=== PATIENT | male | born 1960 | race Caucasian/White ===

== ENCOUNTER 2024-11-22 17:42 | Emergency (ER) | payer OTHER, SELFPAY ==
--- NOTE | ~2024-11-22 | XR_ITS ---
EXAMINATION: XR chest 2V DATE: 11/22/2024 18:13 INDICATION: Shortness of breath, cough and chest wall pain TECHNIQUE: frontal and lateral views of the chest were obtained. COMPARISON: None FINDINGS: The lungs are clear with no focal airspace opacities, pulmonary edema, pleural effusion or pneumothorax. The cardiomediastinal silhouette is normal. Mild thoracic dextrocurvature with mild spondylosis. IMPRESSION: 1. No acute cardiopulmonary disease. Reviewed, dictated and finalized at location A.
[2024-11-22 17:59] VITALS: BP 164/93; PULSE 81; RESP 16; TEMP 36.8; O2SAT 99
--- NOTE | 2024-11-22 18:08 | ED.URI ---
HPI - URI/Sore Throat General Chief Complaint: Upper Respiratory Infection Stated Complaint: URI Symptoms Time Seen by Provider: 11/22/24 17:59 Source: patient and RN notes reviewed Mode of arrival: ambulatory Limitations: no limitations History of Present Illness HPI Narrative: 59-year-old patient with history of diabetes, HTN, high cholesterol, presents today complaining of a 4 day history of cough, fatigue, headache, body aches, nasal congestion with shortness of breath and sternal chest wall pain that started today. He has been taking Tylenol and ibuprofen without much improvement. Denies fever. No history of asthma or COPD. Related Data Home Medications ?Medication ?Instructions ?Recorded ?Confirmed ?Last Taken ?Type fluoxetine 40 mg capsule 40 mg PO DAILY 11/22/24 11/22/24 Unknown History lisinopril 10 mg tablet 10 mg PO DAILY 11/22/24 11/22/24 Unknown History metformin 500 mg tablet,extended 500 mg PO BID 11/22/24 11/22/24 Unknown History release 24 hr rosuvastatin 10 mg tablet 10 mg PO HS 11/22/24 11/22/24 Unknown History tamsulosin 0.4 mg capsule 0.4 mg PO Q24H 11/22/24 11/22/24 Unknown History Allergies Allergy/AdvReac Type Severity Reaction Status Date / Time No Known Allergies Allergy Verified 11/22/24 17:58 [facility] Past Medical History Medical History (Updated 11/22/24 @ 20:26 by Lesia Londono, [facility], ) High cholesterol Hypertension Comments At time of signature, I have reviewed and agree with nursing past medical, surgical, social and family history unless otherwise noted. Please see nursing chart for further information. There is no relevant family history pertinent to the presenting complaint Exam Narrative: GENERAL: Mildly ill-appearing, well-nourished, and in no acute distress. HEAD: Normocephalic, atraumatic. EYES: EOMI. No redness or drainage. Conjunctivae normal. ENT: Mucous membranes pink and moist. Nares clear. No rhinorrhea. TMs normal bilaterally. Throat normal. Uvula midline. NECK: Normal AROM. Supple. No lymphadenopathy. CHEST: No respiratory distress. Crackles in the bilateral bases, otherwise clear. HEART: Regular rate and rhythm. No murmur appreciated. EXTREMITIES: Normal range of motion. No edema. SKIN: Warm, dry, no rash. Capillary refill normal. Normal skin turgor. NEURO: No focal deficits. Alert and oriented x3. Gait steady. PSYCH: Normal affect. No signs of depression or anxiety. Course Course Emergency Course: 1910- Continuing to await CXR results. Patient has been updated. Level of Care: Express Care Visit Vital Signs Vital signs: Vital Signs Temperature 98.3 F 11/22/24 17:59 Pulse Rate 81 11/22/24 17:59 Respiratory Rate 16 11/22/24 17:59 Blood Pressure 164/93 H 11/22/24 17:59 Pulse Oximetry 99 11/22/24 17:59 Temperature 98.3 F 11/22/24 17:59 Pulse Rate 81 11/22/24 17:59 Respiratory Rate 16 11/22/24 17:59 Blood Pressure 164/93 H 11/22/24 17:59 Pulse Oximetry 99 11/22/24 17:59 Reviewed MDM - URI/Sore Throat MDM Narrative Medical decision making narrative: 59-year-old patient with history of diabetes, HTN, high cholesterol, presents today complaining of a 4 day history of cough, fatigue, headache, body aches, nasal congestion with shortness of breath and sternal chest wall pain that started today. He has been taking Tylenol and ibuprofen without much improvement. Upon exam, patient has some crackling in the bilateral lower lobes and is mildly ill appearing. Chest x-ray negative. Patient will be treated with short course of prednisone and an albuterol inhaler for symptoms. Patient agrees with plan. Vital signs stable. Anticipatory guidance and ED precautions given. Differential Diagnosis Differential diagnosis: Likely upper respiratory infection, viral infection and other (pneumonia) Imaging Data Radiologist's impression: ITS Impressions Chest X-Ray 11/22/24 19:13 IMPRESSION: 1. No acute cardiopulmonary disease. Critical Care Time Critical Care Time Critical Care Time: No Discharge Plan Discharge Clinical Impression: Upper respiratory infection Qualifiers: URI type: unspecified URI Qualified Code(s): J06.9 - Acute upper respiratory infection, unspecified Patient Disposition: Home Condition: Stable Instructions: Upper Respiratory Infection (DC) Additional Instructions: Your chest x-ray is negative for pneumonia. Your symptoms are likely due to a viral illness, which is not treated with antibiotics. Virus symptoms can last for up to 7-10days. Take Tylenol or ibuprofen for pain or fever. Take the prednisone and use albuterol inhaler as prescribed Rest and stay hydrated. Follow up with your PCP in 5-6 days if symptoms are not improving. Go to the ER immediately if you develop shortness of breath, difficulty swallowing, or any other concerning symptoms. Patient Language: Kyrgyz Prescriptions: New prednisone 20 mg tablet 40 mg PO DAILY 5 Days Qty: 10 0RF albuterol sulfate 90 mcg/actuation HFA aerosol inhaler 2 inh inhalation Q4-6H PRN (Reason: shortness of breath or wheezing) Qty: 8.5 0RF No Action fluoxetine 40 mg capsule 40 mg PO DAILY tamsulosin 0.4 mg capsule 0.4 mg PO Q24H lisinopril 10 mg tablet 10 mg PO DAILY metformin 500 mg tablet extended release 24 hr 500 mg PO BID Rx Instructions: 500mg, take 1-2 tablets twice per day rosuvastatin 10 mg tablet 10 mg PO HS Follow-up/Referrals: PHYSICIAN,NEIGHBORHOOD COORDINATOR [Primary Care Provider, Internal Medicine] Time of Disposition: 19:23
--- NOTE | 2024-11-22 19:22 | PC.NURSE ---
1840 Patient lying on exam table, informed that we are waiting on the reading of the CXR.
--- NOTE | 2024-11-22 19:23 | PC.NURSE ---
1920 CXR report available-[employer] into speak with patient.
== END 2024-11-22 19:30 | disposition home or self-care (01) ==
PROVIDERS: Emergency Provider Nurse Practitioner
DX: J06.9 Acute upper respiratory infection, unspecified (principal); I10 Essential (primary) hypertension; E11.9 Type 2 diabetes mellitus without complications; Z79.84 Long term (current) use of oral hypoglycemic drugs; E78.00 Pure hypercholesterolemia, unspecified
CPT/HCPCS: 71046; 99203; G0463